=== PATIENT | male | born 1955 | race Caucasian/White ===

== ENCOUNTER 2022-04-26 05:01 | Observation (INO) ==
--- NOTE | 2022-03-21 09:30 | PAT Medication Instructions ---
Medication Instructions Date of Service March 21, 2022 Home Medications L.acidophil-L.casei-B.bifid-B.longum-FOS 2 billion cell-50 mg capsule (Probiotic Blend) 1 cap PO DAILY alfuzosin 10 mg tablet,extended release 24 hr 10 mg PO HS multivitamin 1 tab PO DAILY omega-3 fatty acids 1,000 mg PO DAILY STOP taking 2 weeks before surgery omega-3 fatty acids 1,000 mg PO DAILY DO NOT take the morning of surgery L.acidophil-L.casei-B.bifid-B.longum-FOS 2 billion cell-50 mg capsule (Probiotic Blend) 1 cap PO DAILY multivitamin 1 tab PO DAILY Take evening before surgery alfuzosin 10 mg tablet,extended release 24 hr 10 mg PO HS Other Notes NOTHING TO EAT OR DRINK AFTER MIDNIGHT. If you have any questions please call us at [phone] or [phone] or [phone] or [phone]
--- NOTE | 2022-04-10 09:24 | Anesthesiology Consultation ---
Date of Service April 10, 2022 Assessment & Plan (1) Encounter for pre-operative examination: - awaiting PCP clearance. - Case discussed with Dr. Marie who advised PCP clearance prior to surgery for f/u BP reading. - recent URI symptoms without COVID testing (Onset of cough, pharyngitis, nasal drainage and left ear pain 2 weeks ago-placed on azithromycin by PCP, now completing Augmentin course with improvement). Known COVID 1 month ago with positive PCR 03/21/22. To surgeon's discretion if further COVID testing needed preop. - Outpatient joint assessment: Patient is currently scheduled for inpatient pathway. If re-evaluated pending system levels during current pandemic/surgeon requests outpatient pathway, patient is acceptable candidate for outpatient joint program from anesthesia standpoint pending perioperative course and surgeon's office assessment of pt motivation/support/completion of same day joint program preop requirements. Chart Review Chart Review: Pending: Refer to Additional Notes / Consult section and Patient seen in Pre Admission Testing Teaching & Discussion Pre-Anesthesia Teaching/Discussion Notes: Instructed NPO after midnight before surgery, except medications with 15 cc of water. Medication instructions provided according to the PAT guidelines. History Surgery Operation Date: 04/26/22 10:40 Proposed Procedures p Left Total Hip Arthroplasty - Harley Stephens MD Height/Weight Height: 5 ft 8 in Weight: 85.2 kg Allergies Allergy/AdvReac Type Severity Reaction Status Date / Time No Known Allergies Allergy Verified 03/17/22 13:56 Medications Home Medications Medication Instructions Recorded Confirmed Last Taken L.acidophil-L.casei-B.bifid-B.longum-FOS 1 cap PO DAILY 03/17/22 03/17/22 Unknown 2 billion cell-50 mg capsule (Probiotic Blend) alfuzosin 10 mg tablet,extended 10 mg PO HS 03/17/22 03/17/22 Unknown release 24 hr multivitamin 1 tab PO DAILY 03/17/22 03/17/22 Unknown omega-3 fatty acids 1,000 mg PO DAILY 03/17/22 03/17/22 Unknown Augmentin 04/10/22 Unknown Past Medical History Medical History (Updated 04/10/22 @ 09:32 by Roya Howard PA-C) BPH (benign prostatic hyperplasia) Elevated blood pressure reading pt states managed with diet and exercise, not on anti-hypertensives by mutual decision making with PCP per pt Patient denies h/o stroke, seizures, heart attack, heart failure, DM, blood clots or blood transfusions. Exercise / Class Metabolic Activity II 4-5 Yardwork/Stairs/Walk up hill (denies CP or SOB with 1 FOS) Past Family History Family History Other No family history of adverse response to anesthesia Past Surgical History Surgical History History of colonoscopy History of hernia surgery x2 History of tonsillectomy History of wisdom tooth extraction Past Anesthesia History No Hx of Anesthesia Complications and No Family Hx of Anesthesia Complications History of PONV No Hx of PONV and No Hx of Motion Sickness Social History Smoking Status: Never smoker Do You Dip or Chew Tobacco: No Hx Alcohol Use: Yes alcohol intake frequency: a few times a week Hx Substance Use: No substance use type: does not use Review of Systems Snoring, denies witnessed apneas. Pt reports 2 weeks duration of cough, pharyngitis, nasal drainage and left ear pain-placed on azithromycin by PCP, now completing Augmentin course with improvement. Patient denies chest pain, shortness of breath, dyspnea on exertion, reflux, fever, chills, wheezing, or palpitations. Physical Exam Vital Signs Vitals BP 180/90, manual after patient rested in clinic 15-20 minutes 167/80. P 80 SP02 96% on RA RESP 17 Physical Full cervical extension range of motion without pain TMD 3.5 finger breadths Dentition: intact, several caps/crowns; denies chipped or loose teeth, implants or bridges Lungs: normal respiratory effort. Clear throughout to auscultation, no adventitious breath sounds Cardiac: regular rate and rhythm, no murmurs noted Carotid arteries: negative bruit bilat Lab Results Anesthesia Preop Results Results Anesthesia Widget: WBC 8.96 K/ul (4.8-10.8) 04/10/22 Hgb 17.0 g/dl (14.0-18.0) 04/10/22 Hct 48.8 % (40.1-51.0) 04/10/22 Plt 256 K/uL (130-400) 04/10/22 Na 139 mmol/L (136-145) 04/10/22 K 4.3 mmol/L (3.5-5.1) 04/10/22 Cl 105 mmol/L (98-107) 04/10/22 CO2 28 mmol/L (21-32) 04/10/22 BUN 15 mg/dl (6-23) 04/10/22 Creat 1.01 mg/dl (0.6-1.4) 04/10/22 Glucose Level 81 mg/dl (70-99(Fasting)) 04/10/22 PT 10.7 Seconds (9.0-12.0) 04/10/22 PTT 28.3 Seconds (21.0-31.0) 04/10/22 INR 1.0 (0.9-1.1) 04/10/22 Urine Color Yellow 04/10/22 Urine Appearance Clear (Clear) 04/10/22 Urine pH 7.5 (4.5-7.5) 04/10/22 Urine Specific [place] 1.011 (1.000-1.030) 04/10/22 Urine Protein Negative (Negative) 04/10/22 Urine Glucose (UA) Negative (Negative) 04/10/22 Urine Ketones Negative (Negative) 04/10/22 Urine Blood Negative (Negative) 04/10/22 Urine Nitrite Negative (Negative) 04/10/22 Urine Bilirubin Negative (Negative) 04/10/22 Urine Urobilinogen Negative (Negative) 04/10/22 Urine Leukocyte Esterase Negative (Negative) 04/10/22 Blood Type O Positive 04/10/22 Antibody Screen NEGATIVE 04/10/22 Testing Electrocardiogram Date: 04/10/22 Sinus bradycardia with 1st degree AV block, rate 55 bpm Left axis deviation Chest X-Ray Date: 04/10/22 No acute cardiopulmonary findings COVID-19 Risk Screen Screening Information COVID-19 Screen Date: 04/10/22 Exposure 21 Days Family/Household +COVID Last 21 Days: No Exposure 10 Days Any COVID Exposure Last 10 Days: No Symptoms Last 10 Days Experienced COVID Sx Last 10 Days: No + COVID 0-90 Days COVID + in Last 0-90 Days: Yes + COVID Test 0-10 Day: No + COVID Test 11-90 Day: Yes
--- NOTE | 2022-04-26 05:58 | History & Physical Bridge Note ---
Date of Service April 26, 2022 History & Physical Bridge Note I have examined the patient, reviewed the History & Physical and in the interval since the performance of the History & Physical I have noted the following changes of clinical significance: no changes noted
[2022-04-26] MEDS ORDERED: LR 500ML BOLUS, THEN 15ML/HR IV SCH (06:00)
[2022-04-26] MEDS ORDERED: LR 60ML/HR IV SCH (06:00)
[2022-04-26] MEDS ORDERED: ceFAZolin 2000MG 2,000 MG/15 ML SYR IV SCH (06:00)
[2022-04-26] MEDS ORDERED: TRANEXAMIC ACID 1,000 MG **IV Pre-op IV SCH (06:00)
[2022-04-26] MEDS ORDERED: ROPIVACAINE 0.5% HCL/PF 150 MG, BUPIVACAINE 0.75% MPF 20 ML, EPINEPHrine 0.15 MG, Ketor... INFIL SCH (06:00)
[2022-04-26] MEDS ORDERED: BUPIVACAINE 0.5 % 5 MG/1 ML MPF 30ML VIAL ONE (06:14)
[2022-04-26] MEDS ORDERED: ePHEDrine sulfate 50 MG/ML AMP ONE (06:26)
[2022-04-26] MEDS ORDERED: LIDOCAINE 2% MPF LOCAL 5 ML VIAL INFIL ONE (06:26)
[2022-04-26] MEDS ORDERED: PROPOFOL IV EMULSION 10 MG/ML 20 ML VIAL IV ONE (06:26)
[2022-04-26] MEDS ORDERED: PHENYLEPHRINE HCL 10 MG/ML VIAL ONE (06:26)
[2022-04-26] MEDS ORDERED: ONDANSETRON INJ 2 MG/ML 2 ML VIAL ONE (06:26)
[2022-04-26] MEDS ORDERED: GLYCOPYRROLATE 0.2 MG/ML VIAL ONE (06:26)
[2022-04-26] MEDS ORDERED: SODIUM CHLORIDE 0.9% INJ 10 ML VIAL ONE (06:26)
[2022-04-26] MEDS ORDERED: MIDAZOLAM HCL 1 MG/ML 2ML VIAL ONE (06:27)
[2022-04-26] MEDS ORDERED: KETAMINE 50 MG/5 ML SYRINGE ONE (06:27)
[2022-04-26] MEDS ORDERED: ATROPINE SULFATE 0.1 MG/ML 10ML SYR IV PRN (06:31)
[2022-04-26] MEDS ORDERED: ePHEDrine sulfate 50 MG/ML AMP IV PRN (06:31)
[2022-04-26] MEDS ORDERED: fentaNYL citrate 100 MCG/2 ML VIAL IV PRN (06:31)
[2022-04-26] MEDS ORDERED: ONDANSETRON INJ 2 MG/ML 2 ML VIAL IV PRN ×2 (06:31→10:05)
[2022-04-26] MEDS ORDERED: ORTHO JOINT ANESTHETIC ONE (06:37)
--- NOTE | 2022-04-26 08:23 | Post Operative Brief Note ---
Immediate Post Op Note v1 Date of Surgery April 26, 2022 Pre & Post Diagnosis Operation Date: 04/26/22 07:00 Pre-Op Diagnosis: Left Hip Degenerative Joint Disease Post-Op Diagnosis: Left Hip Degenerative Joint Disease I identified the patient and participated in the time-out.: Yes Procedure Operation Date: 04/26/22 07:00 Actual Procedures p Left Total Hip Arthroplasty--Uncemented(Left) - Harley Stephens MD Surgeon Harley Stephens MD Barrel Planer Cassi/Kari/Aram Estimated Blood Loss 50 Findings Consistent with Post-Op Diagnosis
--- NOTE | 2022-04-26 08:31 | Operative Report ---
Post Operative Report Pre & Post Diagnosis Operation Date: 04/26/22 07:00 Pre-Op Diagnosis: Left Hip Degenerative Joint Disease Post-Op Diagnosis: Left Hip Degenerative Joint Disease I identified the patient and participated in the time-out.: Yes Procedure Operation Date: 04/26/22 07:00 Actual Procedures p Left Total Hip Arthroplasty--Uncemented(Left) - Harley Stephens MD Surgeon ACACIA Stephens MD Film Or Videotape Editor Cassi/Kari/Aram MCCARTHY Estimated Blood Loss 50 Findings Consistent with Post-Op Diagnosis see operative report Specimens see operative report Drains none Complications none Disposition Accompanied Patient To Recovery: Yes Indications This 66 year old male presented to the office with complaints of persisting left hip pain. He has tried activity modification, oral pain medication, and PT without improvement. He elected to proceed with total hip arthroplasty after being educated about potential risks and outcomes, in hopes of improving his pain and function. Preoperative imaging was obtained. Description of Procedure Patient was administered a spinal anesthetic and then taken to the operating room where he was given sedation. He was prepped and draped in the usual sterile fashion. Please see Dr. Stephens's operative report for specifics of the procedure. I was present for the entire case from initial patient positioning through final wound closure. Assistance was provided in tissue retraction, hemostasis, trial implant placement, final implant placement, and final wound closure. Patient was taken to the recovery room in satisfactory condition. I attest to the content of the Intraoperative Record and any orders documented therein. Any exceptions are noted below.
--- NOTE | 2022-04-26 08:52 | Progress Notes ---
DATE OF NOTE: 04/26/2022 SUBJECTIVE: Postop check status post left total hip replacement. OBJECTIVE: GENERAL: Patient is resting comfortably in bed. Denies chest pain, shortness of breath, fever, chil ls, nausea, vomiting or headache. VITAL SIGNS: Stable. He is afebrile. Neurovascular check is limited by spinal. Wound dressing clean, dry and intact. Leg lengths were ex cellent. Postop x-rays look excellent. ASSESSMENT: Doing well status post left total hip replacement. Continue with care pathway. Dischar ge to home tomorrow if he continues to do well. Job ID: [id number]
--- NOTE | 2022-04-26 09:12 | Operative Report (OR) ---
DATE OF NOTE: 04/26/2022 SURGEON: Harley Stephens MD. BALL ENDER: Jaswinder Ye MD. SECOND GOLF COURSE ASSISTANT: Dr. Pierce. THIRD GOLF COURSE ASSISTANT: Romario Chiu PA-C. PREOPERATIVE DIAGNOSIS: Osteoarthritis, left hip. POSTOPERATIVE DIAGNOSIS: Osteoarthritis, left hip. OPERATION PERFORMED: Left noncemented total hip arthroplasty. SUMMARY OF IMPLANTS: A 54 acetabular shell sector cup, 6.5 x 30 screw x1, 36 x 54 neutral liner, 6 s tandard Tri-Lock stem, 36+5 head. These were all DePuy implants. The head is ceramic. ESTIMATED BLOOD LOSS: Roughly 50 mL. CRYSTALLOID: Per anesthesia. PATHOLOGY: Pending on bone. DVT prophylaxis per protocol. PERIOPERATIVE SITUATION: Medically cleared male with intractable hip pain, who has been followed for years. At this point in time, has substantial groin pain, he is very uncomfortable with activities of daily living, and wished to proceed with surgical treatment. X-rays reveal moderate disease. DESCRIPTION OF PROCEDURE: The patient was appropriately identified, site verified, consent verified. Antibiotics were confirmed as being given. The left lower extremity was prepped and draped in usua l routine fashion with the patient in right lateral decubitus position. A posterior approach to the hip was made. Sharp dissection carried through skin, blunt dissection down to fascia. This was inci sed under direct vision. Retractors were then carefully placed. The sciatic nerve was protected. S hort external rotators were released. The capsule was then T'd. The hip was dislocated. The femora l neck was resected. There was significant disease on the superolateral quadrant of the head down to raw bone in multiple sites. There was a significant labral tear anteriorly. The labrum was then excised. Osteophytes were remov ed and then serial reaming carried up to 54 and 54 cup impacted into appropriate inclination and ante version. It had excellent rim fit and an additional 6.5 x 30 screw was placed with excellent purchas e. The trial liner was seated. The femur was then flexed and internally rotated. The proximal femu r prepared with the box lining machine operator, lateralizing rasp and serial broaching up to a size 6, trial reductio n with a +5 head gave superb stability and excellent leg lengths. Hip was then dislocated. All suni ining trial elements were removed. The wound was irrigated with Betadine and Pulsavac, the hole elim inator seated, the permanent liner seated, the permanent head and stem seated and the hip reduced. I t was stable in all planes. The wound was then irrigated one final time with Betadine and Pulsavac, and then closed capturing the short external rotators and the capsule to the trochanter. The IT band was then closed with multiple #2 Vicryls, which was the same stitch in the previous layer. The deep fat was closed with #2-0 Vicryl and then the superficial with 2-0 Vicryl. Orthomix was then injecte d about the incision and then the stainless steel clips were applied. The appropriate dressing was a pplied. The patient was transferred to recovery room in satisfactory condition, having tolerated the procedure well. Overall, procedure went well. Job ID: [id number]
--- NOTE | 2022-04-26 09:16 | Discharge Summary (DS) ---
DATE OF ADMISSION: 04/26/2022. DATE OF POTENTIAL DISCHARGE: 04/27/2022. CHIEF COMPLAINT: Left hip pain. HISTORY OF PRESENT ILLNESS: Underwent elective left total hip replacement. To date, hospital course has been uneventful. Procedure looks good. Postop x-rays look excellent. PAST MEDICAL AND PAST SURGICAL HISTORY: Remarkable for back pain, heart murmur, hypertension, recent COVID, sleep apnea, BPH and osteoarthritis. Inguinal hernia x2, tonsillectomy. ALLERGIES: None. PREADMISSION MEDICATIONS: Include alfuzosin, multivitamin and recently started lisinopril. SOCIAL HISTORY: Reveals the patient is , retired. Enjoys golfing. No tobacco. Occasional a lcohol use. FAMILY HISTORY: Remarkable for heart disease. REVIEW OF SYSTEMS: Reveals no chest pain, shortness of breath, fever, chills, nausea, vomiting or he adache. HOSPITAL COURSE: To date has been uneventful. Preoperative and postoperative plans were discussed in detail with the patient. ASSESSMENT: Doing well status post left total hip replacement. PLAN: To discharge to home tomorrow with services. Coumadin dose per nomogram. Job ID: [id number]
[2022-04-26] MEDS ORDERED: ACETAMINOPHEN 1,000 MG/100 ML VIAL IV PRN (10:05)
[2022-04-26] MEDS ORDERED: TAMSULOSIN HCL 0.4 MG CAP PO PRN (10:05)
[2022-04-26] MEDS ORDERED: SODIUM CHLORIDE 0.9% 1000ML 1,000 ML IV SCH (10:05)
[2022-04-26] MEDS ORDERED: METOCLOPRAMIDE HCL INJ 5 MG/ML 2 ML VIAL IV PRN (10:05)
[2022-04-26] MEDS ORDERED: bisacodyL 10 MG SUPP PR PRN (10:05)
[2022-04-26] MEDS ORDERED: MAGNESIUM HYDROXIDE SUSP 30 ML UDC PO PRN (10:05)
[2022-04-26] MEDS ORDERED: diphenhydrAMINE 50 MG/ML VIAL IV PRN (10:05)
[2022-04-26] MEDS ORDERED: ALUMINUM/MAGNESIUM SUSP 30 ML UDC PO PRN (10:05)
[2022-04-26] MEDS ORDERED: NALOXONE HCL 0.4 MG/1 ML VIAL/CARP IV PRN (10:05)
[2022-04-26] MEDS ORDERED: HYDROmorphone INJ 0.5 MG/0.5 ML SYR IV PRN (10:05)
[2022-04-26] MEDS ORDERED: oxyCODONE HCL IR 5 MG TAB (IMMEDIATE RELEASE) PO PRN (10:05)
[2022-04-26] MEDS: lisinopril 20 MG TAB PO SCH (11:17)
[2022-04-26] MEDS: DOCUSATE SODIUM 100 MG CAP PO SCH ×2 (11:17→20:15)
[2022-04-26] MEDS: MULTIVITAMIN TAB PO SCH (11:18)
--- NOTE | 2022-04-26 11:32 | Anesthesiology Progress Note ---
Date of Service April 26, 2022 Anesthesia Post Procedure Vital Signs Vital Signs: Temp Pulse Pulse Resp BP BP Pulse Ox 04/26/22 10:58 58 L 18 152/80 H 95 04/26/22 10:35 36.4 C L 56 L 15 164/80 H 96 04/26/22 10:07 36.4 C L 55 L 15 147/84 H 95 04/26/22 09:55 36.3 C L 73 16 141/98 H 95 04/26/22 09:45 64 16 154/93 H 95 04/26/22 09:25 64 15 147/79 H 96 04/26/22 09:35 65 15 136/81 95 04/26/22 09:15 66 17 150/97 H 95 04/26/22 08:45 54 L 14 122/78 98 04/26/22 09:05 63 15 137/82 96 04/26/22 08:55 78 16 121/82 97 04/26/22 08:35 68 17 127/77 97 04/26/22 08:28 37.0 C 77 20 120/70 95 04/26/22 05:31 36.8 C 79 20 150/98 H 97 O2 Del Method O2 Flow Rate 04/26/22 10:58 Room Air 04/26/22 10:35 04/26/22 10:07 Room Air 04/26/22 09:55 Room Air 04/26/22 09:45 Room Air 04/26/22 09:25 Room Air 04/26/22 09:35 Room Air 04/26/22 09:15 Room Air 04/26/22 08:45 Nasal Cannula 2 04/26/22 09:05 Room Air 04/26/22 08:55 Nasal Cannula 2 04/26/22 08:35 Nasal Cannula 2 04/26/22 08:28 Nasal Cannula 2 04/26/22 05:31 Room Air Transfer of Care Handoff Completed per policy Notes Mental Status: alert / awake / arousable and participated in evaluation Patient Amnestic to Procedure: Yes Nausea / Vomiting: adequately controlled Pain: adequately controlled Airway Patency, RR, SpO2: stable & adequate BP & HR: stable & adequate Hydration State: stable & adequate Neuraxial Anesthesia: was administered and sensory block is resolving Anesthetic Complications: no major complications apparent and Pt Satisfied with anesthetic care
--- NOTE | 2022-04-26 11:52 | XRay Report ---
XR pelvis 1-2V routine CLINICAL HISTORY: S/P L ETIENNE COMPARISON: Pelvis and left hip radiographs December 05, 2021. FINDINGS: Alignment of the total left hip arthroplasty is anatomic. There is no periprosthetic fract ure or unexpected radiopaque foreign body. There are skin arianne. Pelvic calcifications favor phlebo liths. IMPRESSION: Expected findings following total left hip arthroplasty. ACT 112: Negative or not required by law. Electronically signed by: Edu Bhatia M.D. 04/26/2022 11:51 AM
[2022-04-26] MEDS: KETOROLAC TROMETHAMINE 15 MG/ML VIAL IV SCH ×2 (13:22→20:15)
[2022-04-26] MEDS ORDERED: ORTHO WARFARIN NOMOGRAM SCH (14:00)
[2022-04-26] MEDS ORDERED: TRANEXAMIC ACID / 0.7% NACL 1,000 MG/100 ML BAG IV SCH (14:45)
[2022-04-26] MEDS: ceFAZolin 2000MG 2,000 MG/15 ML SYR IV SCH ×2 (15:06→22:12)
[2022-04-26] MEDS ORDERED: SIMETHICONE 80 MG CHEW PO PRN (15:28)
[2022-04-26] MEDS ORDERED: WARFARIN SOD 5 MG TAB PO SCH (16:00)
[2022-04-26] MEDS: FERROUS GLUCONATE 324 MG TAB PO SCH (16:50)
[2022-04-26] MEDS: ASCORBIC ACID 500 MG TAB PO SCH (16:50)
[2022-04-26] MEDS ORDERED: ALFUZOSIN HCL 10 MG TAB PO SCH (21:00)
[2022-04-26] MEDS ORDERED: SENNA 8.6 MG TAB PO SCH (21:00)
[2022-04-26] MEDS: ACETAMINOPHEN 500 MG TAB PO SCH (22:13)
[2022-04-27] MEDS: KETOROLAC TROMETHAMINE 15 MG/ML VIAL IV SCH ×2 (02:44→08:29)
[2022-04-27] MEDS: ACETAMINOPHEN 500 MG TAB PO SCH (05:53)
[2022-04-27] MEDS ORDERED: dexAMETHasone 10 MG in SYRINGE 0 ML IV SCH (08:00)
--- NOTE | 2022-04-27 08:07 | Progress Notes ---
DATE OF SERVICE: 04/27/2022. SUBJECTIVE: Postop check status post left total hip replacement, doing well, was ambulating well. D enies chest pain, shortness of breath, fever, chills, nausea, vomiting or headache. OBJECTIVE: VITAL SIGNS: Stable. He is afebrile. PHYSICAL EXAMINATION: Neurovascular check femoral sciatic nerve is normal. ASSESSMENT AND PLAN: Doing well. Discharged home today after dressing change. PT/OT. Job ID: [id number]
--- NOTE | 2022-04-27 08:14 | Progress Notes ---
SUBJECTIVE: Postop check status post left total hip replacement, doing well. No chest pain, shortne ss of breath, fever, chills, nausea, vomiting or headache. OBJECTIVE: Vital signs are stable. He is afebrile. Neurovascular check femoral sciatic nerve is normal. Wound dressing clean and intact. Has some sam r staining. ASSESSMENT AND PLAN: Overall, doing well. Continue with present pathway. Dressing change this morn ing by PA. Discharge to home. Keep Coumadin, INR 1.8-2.2 range. Follow up in 2 weeks for staple re moval. Job ID: [id number]
[2022-04-27] MEDS: DOCUSATE SODIUM 100 MG CAP PO SCH (08:28)
[2022-04-27] MEDS: lisinopril 20 MG TAB PO SCH (08:28)
[2022-04-27] MEDS: MULTIVITAMIN TAB PO SCH (08:28)
[2022-04-27] MEDS: ASCORBIC ACID 500 MG TAB PO SCH (08:29)
[2022-04-27] MEDS: FERROUS GLUCONATE 324 MG TAB PO SCH (08:29)
--- NOTE | 2022-04-27 08:32 | Orthopedic Progress Note ---
Date of Service April 27, 2022 Assessment & Plan (1) History of total left hip arthroplasty: Plan PT/OT Weightbearing as tolerated with walker assistance Total hip precautions reviewed Ice with easy wrap DVT prophylaxis with Coumadin and AKIRA stockings Goal INR is 1.8-2.2 Biweekly INR checks during 6 weeks of therapy Plan is to discharge home today with in-home physical therapy for the first 2 weeks postoperatively Abduction pillow use x6 weeks Follow-up at [facility] as previously scheduled With questions contact her clinic at [phone] Admission and Anticipated Discharge Date Admission Date: April 26, 2022 Subjective This 66-year-old male is day 1 status post left total hip arthroplasty. Patient states that he is doing very well. Why cannot see him he was ambulating around the antonio. States that his dressing seems to be saturated and he had to have his cream pad changed last evening. He states his pain is well controlled with the p.o. pain medication. He denies chest pain, shortness of breath, fever, chills, sweats, lethargy, numbness or tingling in the left lower extremity. He also denies nausea, vomiting or difficulty voiding. Review of Systems Review of Systems: All systems reviewed & are unremarkable except as noted in Subjective Physical Exam Physical Exam: Left hip: Saturated dressing was removed. Surgical incision site is closed completely with no palpable fluctuance or discharge. Circumferential area was wiped clean with sterile saline pads. A new dressing was applied consisting of sterile 4 x 4's, ABDs and Medipore tape. Patient is able to perform an active straight leg raise test. Quad strength is 3+ out of 5. He is able to actively dorsi and plantarflex foot without issue. He tolerates very light passive hip flexion to 45 degrees and feels slight twinges of pain with very light passive internal or external hip rotation. Patient is neurovascularly intact in the left lower extremity. Results & Data ([facility]) Vital Signs (Past 12 Hours) Vital Signs Temp Pulse Resp BP Pulse Ox O2 Del Method 04/27/22 03:00 36.8 C 78 16 93/57 L 97 Room Air 04/26/22 23:17 36.7 C 64 17 112/74 97 Room Air Diagnostic Findings Impressions Pelvis X-Ray 04/26/22 08:22 XR pelvis 1-2V routine CLINICAL HISTORY: S/P L ETIENNE COMPARISON: Pelvis and left hip radiographs December 05, 2021. FINDINGS: Alignment of the total left hip arthroplasty is anatomic. There is no periprosthetic fracture or unexpected radiopaque foreign body. There are skin arianne. Pelvic calcifications favor phleboliths. IMPRESSION: Expected findings following total left hip arthroplasty. ACT 112: Negative or not required by law. Electronically signed by: Edu Bhatia M.D. 04/26/2022 11:51 AM
[2022-04-27 08:56] LABS: Basophils # (auto) 0.03 K/uL (0-0.2); Basophils % (auto) 0.2 %; Eosinophils # (auto) 0.05 K/uL (0-0.50); Eosinophils % (auto) 0.4 %; Hematocrit (blood only) 38.3 % (40.1-51.0); Hemoglobin 13.4 g/dl (14.0-18.0); Immature Granulocytes # (auto) 0.07 K/uL (0.00-0.02); Immature Granulocytes % (auto) 0.5 %; Lymphocytes # (auto) 2.07 K/uL (1.2-3.4); Lymphocytes % (auto) 16.1 %; Mean Corpuscular Hemoglobin 31.9 pg (25.0-34.0); Mean Corpuscular Volume 91.2 fL (80.0-100.0); Mean Platelet Volume 10.1 fL (9.4-12.4); Monocytes # (auto) 1.33 K/uL (0.24-0.82); Monocytes % (auto) 10.4 %; Neutrophils % (auto) 72.4 %; Platelet Count 175 K/uL (130-400); RDW Coefficient of Variation 11.8 % (11.5-14.5); RDW Standard Deviation 39.4 fL (36.4-46.3); White Blood Count 12.85 K/ul (4.8-10.8)
[2022-04-27 09:08] LABS: INR 1.3 (0.9-1.1); Prothrombin Time 13.6 Seconds (9.0-12.0)
[2022-04-27 09:26] LABS: BUN Creatinine Ratio 17.8 (10-20); Calcium 8.9 mg/dl (8.5-10.1); Creatinine Clr Calc Pharmacy 70.3 ml/min; Est GFR (African American) 82.8 ml/min; Est GFR (Non-African American) 71.5 ml/min; Potassium 4.3 mmol/L (3.5-5.1)
== END 2022-04-27 11:33 | disposition home health service (06) ==
LOC: 3W 05:01 → ASU 05:01